=== PATIENT | male | born 2000 | race Caucasian/White ===

== ENCOUNTER 2020-06-03 16:17 | Emergency (ER) | payer OTHER ==
[~2020-06-03] VITALS: Ht 177.8 cm; Wt 70.3 kg
[2020-06-03 16:26] VITALS: Ht 177.8 cm; Wt 70.3 kg
[2020-06-03] MEDS ORDERED: PEPCID AC20 M2 PO (20:10)
[2020-06-03] MEDS ORDERED: ONDANSETRON4 M2 PO (20:10)
[2020-06-03] MEDS ORDERED: GAS RELIEF MAX166 MG PO (20:10)
[2020-06-03 20:59] VITALS: BP 108/59
== END 2020-06-03 20:59 | disposition home or self-care (01) ==
LOC: ED 16:17
DX: K29.70 Gastritis, unspecified, without bleeding (principal)